=== PATIENT | male | born 1950 | race Caucasian/White ===

== ENCOUNTER 2017-01-05 16:00 | Emergency (ER) | payer MEDICARE, OTHER ==
[~2017-01-05 16:00] MED LIST: ACTOS30 MG PO; ALLOPURINOL100 MG PO; ASPIR-LOW81 MG PO; ASPIRIN325 MG PO; CIPRO500 MG PO; ENALAPRIL MALEA10 MG PO; GLIPIZIDE ER5 M1 PO; GLUCOPHAGE XR500 MG PO; LANTUS SOLOSTAR3 ML SC; METHADONE5 MG PO; OXYCONTIN20 M1 PO; PERCOCET 5/3251 TAB PO; PRAVACHOL40 MG PO; PRILOSEC40 MG PO
[2017-01-05] MEDS ORDERED: TRIAMCINOLONE A15 G2 TP (18:09)
[2017-01-05] MEDS ORDERED: MECLIZINE HCL25 M3 PO (18:10)
[2017-01-05] MEDS ORDERED: NOVOLIN N100 UNIT/2 SC (18:10)
[2017-01-05] MEDS ORDERED: NOVOLIN R100 UNIT/1 SC (18:11)
[2017-01-05] MEDS ORDERED: [UNRECOGNIZED DRUG - OTHER] (18:12)
[2017-01-05 18:38] LABS: BASO % 0.5 % (0-2); BASO ABSOLUTE COUNT 0.1 tho/cmm (0.0-0.2); EOS % 2.8 % (0-7); EOSINOPHIL ABSOLUTE COUNT 0.3 tho/cmm (0.0-0.7); HCT-HEMATOCRIT 42.8 % (36.0-53.5); HGB-HEMOGLOBIN 14.1 gm/dl (13.5-17.0); IMMATURE GRANULOCYTES ABSOLUTE 0.05 tho/cmm (0-0.03); IMMATURE GRANULOCYTES PERCENT 0.5 % (0-0.3); LYMPH % 19.8 % (20-45); LYMPH ABSOLUTE COUNT 2.2 tho/cmm (0.8-4.5); MCH (MEAN CORPUSCULAR HGB) 30.2 pg (28.0-32.0); MCHC MEAN CORPUSCULAR HGB CONC 32.9 % (32.0-36.0); MCV (MEAN CELL VOLUME) 91.6 fl (82.0-96.0); MEAN PLATELET VOLUME 10.5 cmc (9.4-12.4); MONO % 7.3 % (0-12); MONOCYTE ABSOLUTE COUNT 0.8 tho/cmm (0.0-1.2); NEUTROPHIL ABSOLUTE COUNT 7.6 tho/cmm (1.6-8.0); NEUTROPHIL-AUTOMATED 7.6 tho/cmm (1.6-8.0); NEUTROPHILS % 69.1 % (40-80); PLATELET COUNT 280 tho/cmm (150-450); RED BLOOD COUNT 4.67 mil/cmm (4.40-5.70); RED CELL DISTRIBUTION WIDTH 14.3 % (12.4-16.4); WHITE BLOOD COUNT 10.9 tho/cmm (4.0-10.0)
[2017-01-05 18:51] LABS: ANION GAP 11 mmol/L (0-20); BLOOD UREA NITROGEN 30 mg/dl (6-24); CALCIUM 9.1 mg/dl (8.5-10.5); CARBON DIOXIDE-VENOUS 29 mmol/L (22-32); CHLORIDE 106 mmol/l (96-110); CREATININE 1.77 mg/dl (0.60-1.30); GLUCOSE 150 mg/dL (70-110); POTASSIUM 5.1 mmol/L (3.7-5.1); SODIUM 141 mmol/L (135-145); eGFR VALUE FOR BLACK 45 mL/Min
== END 2017-01-05 19:30 ==
LOC: EDMED 16:00
PROVIDERS: Emergency Medicine
DX: H81.12 Benign paroxysmal vertigo, left ear (principal); E11.9 Type 2 diabetes mellitus without complications; I10 Essential (primary) hypertension; G47.30 Sleep apnea, unspecified; Z85.038 Personal history of other malignant neoplasm of large intestine; Z85.528 Personal history of other malignant neoplasm of kidney; Z88.0 Allergy status to penicillin; Z79.82 Long term (current) use of aspirin; Z79.4 Long term (current) use of insulin; Z79.899 Other long term (current) drug therapy; Z90.49 Acquired absence of other specified parts of digestive tract; Z98.890 Other specified postprocedural states

== ENCOUNTER 2017-01-23 11:24 | Observation (INO) | payer MEDICARE, OTHER ==
[~2017-01-23 11:24] MED LIST changes: +MECLIZINE HCL25 M3 PO; +NOVOLIN N100 UNIT/2 SC; +NOVOLIN R100 UNIT/1 SC; +TRIAMCINOLONE A15 G2 TP; +[UNRECOGNIZED DRUG - OTHER]
[2017-01-23] MEDS ORDERED: MECLIZINE HCL25 M3 PO (11:48)
[2017-01-23] MEDS ORDERED: GLUCOTROL XL10 M1 PO (11:48)
[2017-01-23] MEDS ORDERED: ENALAPRIL MALEA10 M1 PO (11:48)
[2017-01-23] MEDS ORDERED: METHADONE HCL5 M2 PO (11:49)
[2017-01-23] MEDS ORDERED: GLUCOPHAGE XR500 M1 PO (11:49)
[2017-01-23] MEDS ORDERED: OMEPRAZOLE40 M2 PO (11:49)
[2017-01-23] MEDS ORDERED: ZYLOPRIM100 M1 PO (11:49)
[2017-01-23] MEDS ORDERED: PRAVACHOL40 M1 PO (11:50)
[2017-01-23] MEDS ORDERED: PERCOCET 5-3251 EACH PO (11:50)
[2017-01-23 11:51] LABS: BASO % 0.3 % (0-2); EOS % 3.5 % (0-7); EOSINOPHIL ABSOLUTE COUNT 0.4 tho/cmm (0.0-0.7); HCT-HEMATOCRIT 42.8 % (36.0-53.5); HGB-HEMOGLOBIN 13.9 gm/dl (13.5-17.0); IMMATURE GRANULOCYTES ABSOLUTE 0.11 tho/cmm (0-0.03); IMMATURE GRANULOCYTES PERCENT 0.9 % (0-0.3); LYMPH % 21.5 % (20-45); LYMPH ABSOLUTE COUNT 2.7 tho/cmm (0.8-4.5); MCHC MEAN CORPUSCULAR HGB CONC 32.5 % (32.0-36.0); MCV (MEAN CELL VOLUME) 92.2 fl (82.0-96.0); MEAN PLATELET VOLUME 10.2 cmc (9.4-12.4); MONOCYTE ABSOLUTE COUNT 0.9 tho/cmm (0.0-1.2); NEUTROPHIL ABSOLUTE COUNT 8.3 tho/cmm (1.6-8.0); NEUTROPHIL-AUTOMATED 8.3 tho/cmm (1.6-8.0); NEUTROPHILS % 66.8 % (40-80); PLATELET COUNT 287 tho/cmm (150-450); RED BLOOD COUNT 4.64 mil/cmm (4.40-5.70); RED CELL DISTRIBUTION WIDTH 14.7 % (12.4-16.4); WHITE BLOOD COUNT 12.3 tho/cmm (4.0-10.0)
[2017-01-23] MEDS ORDERED: ASPIRIN EC325 M1 PO (11:52)
[2017-01-23 12:05] LABS: ANION GAP 13 mmol/L (0-20); BLOOD UREA NITROGEN 36 mg/dl (6-24); CALCIUM 9.2 mg/dl (8.5-10.5); CARBON DIOXIDE-VENOUS 25 mmol/L (22-32); CHLORIDE 106 mmol/l (96-110); CREATININE 1.89 mg/dl (0.60-1.30); GLUCOSE 133 mg/dL (70-110); SODIUM 139 mmol/L (135-145); eGFR VALUE FOR BLACK 42 mL/Min
[2017-01-23] MEDS ORDERED: TRIAMCINOLONE A15 G2 TOP (12:05)
[2017-01-23] MEDS ORDERED: NOVOLIN N100 UNIT/2 SC (12:06)
[2017-01-23] MEDS ORDERED: NOVOLIN R100 UNIT/1 SC (12:07)
[2017-01-23 12:09] LABS: POTASSIUM 5.1 mmol/L (3.7-5.1)
[2017-01-24] MEDS ORDERED: NORVASC5 M2 PO (13:26)
== END 2017-01-24 14:05 ==
LOC: EDMED 11:24 → EMR2 15:03 → CAR1 15:45
PROVIDERS: Emergency Medicine; ADMIT Internal Medicine Cardiovascular Disease
DX: R07.9 Chest pain, unspecified (principal); E78.5 Hyperlipidemia, unspecified; E66.9 Obesity, unspecified; I12.9 Hypertensive chronic kidney disease with stage 1 through stage 4 chronic kidney disease, or unspecified chronic kidney disease; E11.22 Type 2 diabetes mellitus with diabetic chronic kidney disease; N18.9 Chronic kidney disease, unspecified; Z79.899 Other long term (current) drug therapy; Z88.0 Allergy status to penicillin; Z90.49 Acquired absence of other specified parts of digestive tract; Z98.890 Other specified postprocedural states
CPT/HCPCS: A9500; G0378; J1815; J2785; J7030